=== PATIENT | male | born 2000 | race Caucasian/White ===

== ENCOUNTER 2020-05-13 08:29 | Emergency (ER) | payer BC ==
[~2020-05-13] VITALS: Ht 180.3 cm; Wt 56.7 kg
== END 2020-05-13 13:48 | disposition home or self-care (01) ==
LOC: ER 08:29
DX: S40.012A Contusion of left shoulder, initial encounter (principal); S20.212A Contusion of left front wall of thorax, initial encounter; S20.211A Contusion of right front wall of thorax, initial encounter; S90.31XA Contusion of right foot, initial encounter; Y08.89XA Assault by other specified means, initial encounter; Y93.89 Activity, other specified; Y92.89 Other specified places as the place of occurrence of the external cause; Y99.8 Other external cause status